=== PATIENT | male | born 1960 | race Caucasian/White ===

== ENCOUNTER → 2020-05-09 08:30 | Outpatient (CLI) | payer OTHER, SELFPAY ==
--- NOTE | ~2020-05-09 | CT_ITS ---
EXAMINATION: CT sinus wo con EXAM DATE: 05/09/2020 08:46 INDICATION: Chronic sinusitis. TECHNIQUE: Spiral CT of the sinuses was acquired in the axial plane. Coronal and sagittal reformatte d images were also reviewed. The dose-length product (DLP) for this examination was 266.74 mGy-cm. Iterative reconstruction (ASIR) was used as dose reduction technique. There is no prior study for co mparison. FINDINGS: The sinuses are normally developed. Minimal right frontal mucoperiosteal thickening. No sinus air-fluid levels. The ostiomeatal units are patent. There is no sinus wall thickening. The re is mild to moderate leftward nasal septal deviation. The mastoid air cells and middle ears are we ll aerated. External auditory canals are patent. The orbits and visualized soft tissues are unrem arkable. IMPRESSION: Minimal right frontal mucoperiosteal thickening. Nasal septal deviation. Reviewed, dictated and finalized at location A. FINISHER IMPRESSION: Minimal right frontal mucoperiosteal thickening. Nasal septal heri ation.
== END ==
PROVIDERS: Visit Provider Allergy & Immunology
DX: J32.9 Chronic sinusitis, unspecified (principal); J34.2 Deviated nasal septum
CPT/HCPCS: 70486

== ENCOUNTER → 2020-09-29 01:51 | Outpatient (CLI) | payer OTHER, SELFPAY ==
[2020-09-29 19:34] LABS: SARS-CoV-2 RNA PCR Negative
== END ==
PROVIDERS: PCP Internal Medicine; Visit Provider Internal Medicine Gastroenterology
DX: Z01.812 Encounter for preprocedural laboratory examination (principal); Z20.822 Contact with and (suspected) exposure to COVID-19
CPT/HCPCS: C9803; U0003; U0005

== ENCOUNTER 2020-10-03 01:02 | Day surgery (SDC) | payer OTHER, SELFPAY ==
[2020-09-19 13:53] VITALS: BMI 26.5
[2020-10-03 10:12] VITALS: BP 114/73; PULSE 69; RESP 16; TEMP 36.9; O2SAT 98; BMI 26.9
[2020-10-03] MEDS: LACTATED RINGERS 1,000 ML 150 ML IV CONT (10:22)
--- NOTE | 2020-10-03 10:44 | WPDGICN ---
GI Consult Note Consult date/time: 10/03/20 10:44 HPI: Reason for visit is EGD. This very pleasant gentleman seen in consultation request of the primary physician. Impression: Airway gentleman with a history of GERD. He is having increasing congestion. Underlying exacerbation of reflux is certainly a consideration. Recommendation: EGD. History: This very pleasant gentleman is here for a history reflux. The patient has been noticing increasing nocturnal reflux. He describes a congestion at night. Nausea, vomiting, hematemesis, dysphagia or odynophagia tonight. He does complain of some nocturnal coughing. The coughing at times so hard at her some to cough. Shortness of breath, dyspnea exertion and wheezing or tonight. The patient is here for EGD. Physical examination: General: very pleasant patient in no acute distress. HEENT: Head was normocephalic sclerae is clear mouth without masses neck was supple. Heart: Rate rhythm regular without S3 or S4. Lungs: CTA. Abdomen: Soft with no guarding or rigidity. Bowel sounds were active. Neurologic: Cranial nerves 2 through 12 intact. No focal defects. No clonus. Musculoskeletal system: Revealed no joint tenderness or swelling no muscle atrophy. Extremities: Reveal no significant edema. Skin: Warm and dry with normal turgor. Mental status: intact. Patient is alert and oriented. Review of Systems Review of Systems: All systems reviewed & are unremarkable except as noted in HPI and below PMFSH Past Medical History Medical History (Updated 10/03/20 @ 10:44 by Angel Samuels DO) GERD (gastroesophageal reflux disease) Surgical History Surgical History (Updated 10/03/20 @ 10:44 by Angel Samuels DO) H/O colonoscopy H/O esophagogastroduodenoscopy Social History Social History Smoking packs per day: 0.5 Smoking cigarettes per day: 10.0 Years smoked: 8 Smoking pack-years: 4.00 Smoking status: Former smoker Tobacco type: cigarettes Smoking end date: 06/29/97 Alcohol intake: current Substance use: never Substance use type: does not use Living arrangements: with family Spiritual care concerns: No Meds Home Medications and Allergies Home Medications Medication Instructions Recorded Confirmed Type azelastine 137 mcg (0.1 %) nasal 2 spray INTRANASAL Q12H #30 ml 06/13/20 10/03/20 Rx spray aerosol omeprazole 20 mg capsule,delayed 20 mg PO DAILY 06/13/20 10/03/20 History release famotidine 40 mg PO DAILY 09/19/20 10/03/20 History Allergies Allergy/AdvReac Type Severity Reaction Status Date / Time No Known Allergies Allergy Unknown Verified 10/03/20 10:11 Vital Signs Vital Signs - 24 hr 10/03/20 10:12 Temperature 36.9 C Pulse Rate 69 Respiratory Rate 16 Blood Pressure 114/73 Pulse Oximetry 98
--- NOTE | 2020-10-03 10:52 | WPDANESEPPF ---
Anes - Initial Pre Proc Eval Procedure: Operation Date: 10/03/20 11:30 Proposed Procedures p Esophagogastroduodenoscopy - Angel Samuels DO Date/Time: 10/03/20 10:52 Surgeon: Angel Samuels DO Pre Op Diagnosis: GERD Patient Data Age: 60 Gender: M Height: 5 ft 10 in Weight: 85.3 kg Last Vital Signs Temp 98.4 F 10/03/20 10:12 Pulse 69 10/03/20 10:12 Resp 16 10/03/20 10:12 BP 114/73 10/03/20 10:12 Pulse Ox 98 10/03/20 10:12 Allergies Allergy/AdvReac Type Severity Reaction Status Date / Time No Known Allergies Allergy Unknown Verified 10/03/20 10:11 Home Medications Medication Instructions Recorded Confirmed Type azelastine 137 mcg (0.1 %) nasal 2 spray INTRANASAL Q12H #30 ml 06/13/20 10/03/20 Rx spray aerosol omeprazole 20 mg capsule,delayed 20 mg PO DAILY 06/13/20 10/03/20 History release famotidine 40 mg PO DAILY 09/19/20 10/03/20 History Patient hx anesthesia problems: none Family hx anesthesia problems: none [facility] Past Medical History Medical History (Updated 10/03/20 @ 10:44 by Angel Samuels DO) GERD (gastroesophageal reflux disease) Surgical History Surgical History (Updated 10/03/20 @ 10:44 by Angel Samuels DO) H/O colonoscopy H/O esophagogastroduodenoscopy Social History Social History Smoking packs per day: 0.5 Smoking cigarettes per day: 10.0 Years smoked: 8 Smoking pack-years: 4.00 Smoking status: Former smoker Tobacco type: cigarettes Smoking end date: 06/29/97 Alcohol intake: current Substance use: never Substance use type: does not use Living arrangements: with family Spiritual care concerns: No Anes - Eval Final PreProcedure Day of Procedure 10/03/20 10:52 Patient weight: normal Heart: regular rate and rhythm Lungs: clear to auscultation Airway: Mallampati scale class II Neurological: alert and oriented Last oral intake: >/= 8 hours ASA classification: II Emergent: no Anesthetic plan: proceed Anesthesia type and monitoring: general GIVS and standard monitoring Informed Consent: The patient's anesthetic plan and its attendant risks and benefits were discussed with the patient/family/POA. Questions were solicited and answers provided to the satisfaction of the patient/family/POA.
[2020-10-03] MEDS: SIMETHICONE ORAL SUSPENSION 20 MG/0.3 ML 30 ML BOTTLE 0.6 ML IRRIGATION (11:10)
[2020-10-03 11:13] VITALS: BP 116/79; PULSE 69; RESP 20; O2SAT 98
[2020-10-03 11:23] VITALS: BP 110/77; PULSE 63; RESP 20; O2SAT 98
[2020-10-03 11:33] VITALS: BP 117/79; PULSE 57; RESP 20; O2SAT 100
== END 2020-10-03 11:47 | disposition home or self-care (01) ==
PROVIDERS: PCP Internal Medicine; Visit Provider Internal Medicine Gastroenterology
PROC: 0DJ08ZZ Inspection of Upper Intestinal Tract, Via Natural or Artificial Opening Endoscopic (ICD-10-PCS; CPT 43235; principal; 2020-10-03 11:30)
DX: K21.9 Gastro-esophageal reflux disease without esophagitis (principal); R05 Cough; K44.9 Diaphragmatic hernia without obstruction or gangrene; Z87.891 Personal history of nicotine dependence
CPT/HCPCS: 43239; 87081; C9803; J2704; J7120; U0003; U0005

== ENCOUNTER → 2020-11-05 13:10 | Outpatient (CLI) | payer OTHER, SELFPAY ==
--- NOTE | ~2020-11-05 | XR_ITS ---
EXAMINATION: XR chest 2V DATE: 11/05/2020 13:18 INDICATION: Cough. TECHNIQUE: Frontal and lateral views of the chest were obtained. COMPARISON: None. FINDINGS: The lung volumes are normal. There is a diffuse interstitial pattern in the lungs with a pe ripheral predominance. No pleural effusion or pneumothorax. The heart size is normal. There is chroni c anterior wedging of multiple vertebral bodies. IMPRESSION: 1. Diffuse lung disease, likely chronic interstitial lung disease and/or emphysema. Reviewed, dictated and finalized at location B. IMPRESSION: 1. Diffuse lung disease, likely chronic interstitial lung disease and/or emphys ruth.
== END ==
PROVIDERS: Visit Provider Physician Assistant Medical
DX: R05 Cough (principal); J98.4 Other disorders of lung
CPT/HCPCS: 71046

== ENCOUNTER 2021-03-21 09:56 | Outpatient (CLI) | payer OTHER, SELFPAY ==
--- NOTE | ~2021-03-21 | CT_ITS ---
EXAMINATION: CT chest high resolution wo md EXAM DATE: 03/21/2021 10:40 INDICATION: R05 - Cough . TECHNIQUE: Spiral CT of the chest without contrast. HRCT. Axial, coronal and sagittal images of the c hest were reviewed. Coronal maximum intensity pixel images of chest reviewed. The dose-length produ ct (DLP) for this examination was 306.51 mGy-cm. The exposure was tailored according to patient size (auto mA exposure control), and iterative reconstruction (ASIR) was used as additional dose reductio n technique. Correlation is made to chest x-ray 11/05/2020. FINDINGS: HRCT demonstrates moderate to severe amount of peripheral interlobular septal thickening, r egions of honeycombing with bibasilar predominance. This is consistent with usual interstitial pneum onitis pattern interstitial lung disease. Some possible etiologies include collagen vascular disease, chronic hypersensitivity pneumonitis, medications/drugs, prior viral infection, asbestosis, or can b e idiopathic. There is moderate emphysema. No acute airspace disease. There are no pleural or pericardial effusion s. Tracheobronchial tree is patent. There is no mediastinal, hilar or axillary lymphadenopathy. There is no pneumothorax. Heart normal in size. There is mild to moderate coronary arterial calc ification, arterial sclerosis. There is small sliding gastroesophageal hiatal hernia. No osteoblasti c or osteolytic lesions identified. Mild to moderate chronic appearing compression fracture of L1 and T11, mild at T12 and T3. IMPRESSION: 1. Moderate to severe chronic interstitial lung disease. 2. Moderate emphysema. 3. No acute findings. Reviewed, dictated and finalized at location B.
== END 2021-03-21 09:57 | disposition home or self-care (01) ==
LOC: ANHIMG 10:00
PROVIDERS: PCP Internal Medicine; Visit Provider Internal Medicine Pulmonary Disease
DX: J98.4 Other disorders of lung (principal); R05 Cough; J43.9 Emphysema, unspecified
CPT/HCPCS: 71250

== ENCOUNTER 2021-04-01 09:54 | Outpatient (CLI) | payer OTHER, SELFPAY ==
[2021-04-01 10:57] LABS: Rheumatoid Factor < 8.6 IU/ML (<12)
--- NOTE | 2021-04-01 11:27 | PCRCNOTE ---
DURING 6 MINUTE WALK PT. SPO2 DROPPED TO 86%. NO TITRATION ORDER CURRENTLY. CALLED DR. JOYCE AND HE STATED TO COMPLETE A HOME O2 EVALUATION. PT. DECIDED TO HOLD OFF ON HOME O2 EVALUATION UNTIL HE DISCUSSES FURTHER WITH DR. JOYCE.
[2021-04-03 10:40] LABS: ANCA Screen Negative (Negative)
[2021-04-04 22:51] LABS: Anti Cyclic Citrullinated Pept <16 Units (<20)
[2021-04-07 08:57] LABS: ANA Cascade Screen Positive (Negative)
--- NOTE | 2021-04-08 11:10 | P.PCNPFT_ITS ---
PFT Procedure Performed PFT Procedure Performed Spirometry with Pre/Post Bronchodilator Plethysmography (Lung Vol) Diffusing Cap (DLCO) Flow Vol Loop PFT Interpretation Lung volumes were measured with the body plethysmography method. The mildly diminished lung volumes are indicative of restrictive respiratory disease. Sp irometry showed diminished expiratory flow rates and a normal FEV1 to FVC ratio of 70%, also consistent with restrictive respiratory disease. Following administration of an inhaled bronchodilator, there was no significant increase in the expiratory flow rates. Lung diffusion capacity is moderately reduced at 50% predicted. Impression: Mild restrictive respiratory disease. Moderately reduced lung diffusion capacity.
--- NOTE | 2021-04-08 11:15 | WPDSIXMINUTE ---
Six Minute Walk Procedure Procedure Performed Pulmonary Stress Test (6 min walk) Six Minute Walk The 6 minute walk test was carried out with the patient breathing ambient air. Pre walk oxygen saturation was 98%. The patient was able to walk 1200 ft with no recorded stops. During the walk the O2 saturation transiently dropped on 2 occasions down to 86-85%, with each drop lasting no more than 30 seconds. For most of the remainder walk, the O2 saturation remained over 90%. It is unclear whether this transient drop represents true oxyhemoglobin desaturation or it is due to artifacts. If clinically indicated, consider repeating the 6 minute walk test for oxygen therapy assessment.
[2021-04-09 06:41] LABS: Chromatin (Nucleosomal) Ab <1.0; RNP Antibody 1.1; Sm Antibody <1.0; Sm/RNP Antibody <1.0
== END 2021-04-01 09:55 | disposition home or self-care (01) ==
LOC: ANHPFT 09:56
PROVIDERS: PCP Internal Medicine; Visit Provider Internal Medicine Pulmonary Disease
DX: R06.00 Dyspnea, unspecified (principal); J40 Bronchitis, not specified as acute or chronic; Z72.0 Tobacco use; J84.9 Interstitial pulmonary disease, unspecified
CPT/HCPCS: 36415; 86021; 86038; 86200; 86331; 86430; 86606; 86609; 94060; 94618; 94726; 94729

== ENCOUNTER 2021-05-10 07:51 | Outpatient (CLI) | payer OTHER, SELFPAY ==
[2021-05-10 08:30] VITALS: PULSE 91; O2SAT 98
[2021-05-10 08:35] VITALS: PULSE 113; O2SAT 91
[2021-05-10 08:45] VITALS: PULSE 89; O2SAT 97
--- NOTE | 2021-05-10 10:28 | HOMEO2EVAL ---
Evaluation was performed at [facility] Home Oxygen Evaluation RC: Home Oxygen (O2) Evaluation Start: 05/10/21 10:26 Freq: Status: Active Protocol: RPE Activity Type Activity Date Activity User E-Sign Co-Sign Detail Recorded Client Recorded Date Recorded By Document 05/10/21 08:30 DJO [email or web address] 05/10/21 10:28 DJO Document 05/10/21 08:35 [email or web address] [email or web address] 05/10/21 10:28 DJO Document 05/10/21 08:45 [email or web address] [email or web address] 05/10/21 10:28 DJO 05/10/21 05/10/21 05/10/21 08:30 08:35 08:45 Home O2 Evaluation Test Phase Resting Exercise Resting Oxygen Delivery Room Air Room Air Room Air Pulse Oximetry (90-100 %) 98 91 97 Pulse Rate (60-100 beats/min) 91 113 H 89 Ambulation Distance (feet) 900 Home Oxygen Evaluation Comments NO HOME O2 REQUIRED AT THIS TIME. Treatment Charges O2 Evaluation - Outpatient
--- NOTE | 2021-05-10 10:29 | PCRCNOTE ---
HOME O2 FAXED TO OFFICE STAFF. NO HOME O2 REQUIRED
== END 2021-05-10 07:52 | disposition home or self-care (01) ==
PROVIDERS: PCP Internal Medicine; Visit Provider Internal Medicine Pulmonary Disease
DX: J84.9 Interstitial pulmonary disease, unspecified (principal)
CPT/HCPCS: 94618

== ENCOUNTER 2021-10-10 10:41 | Outpatient (CLI) | payer OTHER, SELFPAY ==
[2021-10-10 11:12] LABS: CRP < 0.5 mg/dL (<1.0); Creatine Kinase 95 U/L (55-170)
[2021-10-12 18:30] LABS: SS-A <1.0; SS-B <1.0
[2021-10-14 06:56] LABS: JO 1 Antibody <1.0; Scleroderma 70 Antibody <1.0
== END 2021-10-10 10:42 | disposition home or self-care (01) ==
LOC: ANHLAB 10:43
PROVIDERS: PCP Internal Medicine; Visit Provider Internal Medicine Pulmonary Disease
DX: R76.8 Other specified abnormal immunological findings in serum (principal); J84.9 Interstitial pulmonary disease, unspecified
CPT/HCPCS: 36415; 82550; 86140; 86235